=== PATIENT | female | born 1955 | race African-American/Black ===

== ENCOUNTER 2018-01-04 17:04 | Inpatient (IN) | payer MEDICARE ==
[~2018-01-04] VITALS: Ht 167.6 cm; Wt 101.6 kg
[2018-01-04] MEDS ORDERED: SODIUM CHLORIDE FLUSH 10ML SYR IVF ONE (17:30)
[2018-01-04] MEDS ORDERED: PLEASE ENTER HEIGHT AND WEIGHT MC SCH (18:00)
[2018-01-04 18:43] LABS: BASOPHILS # (AUTO) 0.03 x10^3/uL (0-0.1); BASOPHILS % (AUTO) 0 % (0-1); EOSINOPHILS # (AUTO) 0.09 x10^3/uL (0-0.4); EOSINOPHILS % (AUTO) 1 % (1-7); LYMPHOCYTES # (AUTO) 2.68 x10^3/uL (1-3.4); LYMPHOCYTES % (AUTO) 20 % (22-44); MD NO; MEAN CORPUSCULAR HEMOGLOBIN 28.5 pg (27.0-34.8); MEAN CORPUSCULAR HGB CONC 32.6 g/dL (32.4-35.8); MEAN CORPUSCULAR VOLUME 87.5 fL (80-100); MEAN PLATELET VOLUME 9.8 fL (7.4-10.4); MONOCYTES # (AUTO) 0.81 x10^3/uL (0.2-0.8); MONOCYTES % (AUTO) 6 % (2-9); NEUTROPHILS # (AUTO) 9.51 x10^3/uL (1.8-6.8); NEUTROPHILS % (AUTO) 73 % (42-75); PLATELET COUNT 270 x10^3/uL (130-400); RED BLOOD COUNT 4.82 x10^6/uL (3.82-5.3); RED CELL DISTRIBUTION WIDTH 13.2 % (9.6-15.2)
[2018-01-04 18:53] LABS: ALBUMIN 3.4 g/dL (3.4-5.0); ANION GAP 8 mmol/L (5-15); CALCIUM 9.1 mg/dL (8.5-10.1); CHLORIDE 110 mmol/L (98-107)
[2018-01-04 19:00] LABS: ALANINE AMINOTRANSFERASE 30 U/L (12-78); ALKALINE PHOSPHATASE 80 U/L (45-117); BILIRUBIN,TOTAL 0.8 mg/dL (0.2-1.0); CREATININE 0.87 mg/dL (0.55-1.02); TOTAL PROTEIN 7.3 g/dL (6.4-8.2); TROPONIN I < 0.015 ng/mL (0.000-0.045)
[2018-01-04] MEDS ORDERED: OMNIPAQUE 350 MG/ML, 100ML BOTTLE ONE (19:48)
[2018-01-04] MEDS ORDERED: SULFAMETH./TRIMETHOPRIM DS 800MG/160MG TABLET PO ONE (20:30)
[2018-01-04] MEDS ORDERED: CEPHALEXIN 500 MG CAPSULE PO ONE (20:30)
[2018-01-04] MEDS ORDERED: LABETALOL 5MG/ML, 20ML IVPush ONE (20:30)
[2018-01-04] MEDS ORDERED: MORPHINE SULFATE 4 MG/ML, 1ML ONE (20:43)
[2018-01-04] MEDS ORDERED: CEPHALEXIN 500 MG CAPSULE ONE (20:57)
[2018-01-04] MEDS ORDERED: SULFAMETH./TRIMETHOPRIM DS 800MG/160MG TABLET ONE (20:57)
[2018-01-04] MEDS ORDERED: LABETALOL 5MG/ML, 20ML ONE (20:57)
[2018-01-04] MEDS ORDERED: PROMETHAZINE 25 MG/ML, 1ML IM PRN ×2 (21:00)
[2018-01-04] MEDS ORDERED: morphine SULFATE 10 MG/ML, 1ML IVPush PRN (21:00)
[2018-01-04] MEDS ORDERED: MORPHINE SULFATE 4 MG/ML, 1ML IVPush PRN (21:00)
[2018-01-04] MEDS ORDERED: hydrALAzine 20 MG/ML, 1ML IVPush PRN (21:00)
[2018-01-04] MEDS ORDERED: ONDANSETRON ODT 4 MG PO PRN (21:00)
[2018-01-04] MEDS ORDERED: DOCUSATE 100 MG CAPSULE PO PRN (21:00)
[2018-01-04] MEDS ORDERED: BISACODYL 10 MG SUPP PR PRN (21:00)
[2018-01-04] MEDS ORDERED: ACETAMINOPHEN 325 MG TABLET PO PRN (21:00)
[2018-01-04] MEDS ORDERED: POLYETHYLENE GLYCOL 17 GM PACKET PO PRN (21:00)
[2018-01-04] MEDS ORDERED: ONDANSETRON 2MG/ML, 2ML IVPush PRN (21:00)
[2018-01-04] MEDS ORDERED: ENALAPRILAT 1.25 MG/ML, 2ML IVPush PRN (21:00)
[2018-01-04] MEDS ORDERED: OXYcodone IR 5MG TABLET PO PRN (21:00)
[2018-01-04] MEDS ORDERED: METF500T4 PO (21:24)
[2018-01-04] MEDS ORDERED: GLIP5TAB10 PO (21:26)
[2018-01-04] MEDS: INSULIN LISPRO 100 UNITS/ML, PEN SQ-INSULIN SCH (22:00)
[2018-01-04] MEDS ORDERED: POTASSIUM CHLORIDE 20 MEQ TAB.ER.PRT PO ONE (22:00)
[2018-01-04] MEDS: CEPHALEXIN 500 MG CAPSULE PO SCH (22:00)
[2018-01-04 22:14] LABS: HEMOGLOBIN A1C 7.1 % (4.2-6.3)
[2018-01-04 22:15] LABS: FREE T4 (FREE THYROXINE) 1.19 ng/dL (0.76-1.46); THYROID STIMULATING HORMONE 0.563 mIU/L (0.358-3.740)
[2018-01-04 22:17] VITALS: BP 184/103
[2018-01-04] MEDS: SIMVASTATIN 20 MG TABLET PO SCH (22:58)
[2018-01-04] MEDS: LISINOPRIL 20 MG TABLET PO SCH (22:59)
[2018-01-04] MEDS: METOPROLOL TARTRATE 25 MG TABLET PO SCH (22:59)
[2018-01-04] MEDS: NICOTINE 14MG/24 HR PATCH.TD24 TD SCH (22:59)
[2018-01-04] MEDS: HEPARIN 5,000 UNITS/ML, 1ML SQ SCH (23:00)
[2018-01-05 00:01] LABS: TROPONIN I 0.023 ng/mL (0.000-0.045)
[2018-01-05] MEDS ORDERED: PNEUMOCOCCAL 23 VACCINE IM-VACC ONE (00:30)
[2018-01-05 00:47] LABS: MICROSCOPIC NOT IND
[2018-01-05 01:05] LABS: CULTURE INDICATED? NO
[2018-01-05 02:00] VITALS: BP 159/96
[2018-01-05] MEDS: CEPHALEXIN 500 MG CAPSULE PO SCH ×3 (03:31→18:26)
[2018-01-05] MEDS ORDERED: ASPIRIN 325 MG TABLET EC PO SCH (06:00)
[2018-01-05] MEDS: HEPARIN 5,000 UNITS/ML, 1ML SQ SCH ×3 (06:00→23:25)
[2018-01-05] MEDS: METOPROLOL TARTRATE 25 MG TABLET PO SCH ×2 (06:01→18:27)
[2018-01-05 06:17] LABS: BASOPHILS # (AUTO) 0.12 x10^3/uL (0-0.1); BASOPHILS % (AUTO) 1 % (0-1); EOSINOPHILS # (AUTO) 0.15 x10^3/uL (0-0.4); EOSINOPHILS % (AUTO) 1 % (1-7); LYMPHOCYTES # (AUTO) 3.98 x10^3/uL (1-3.4); LYMPHOCYTES % (AUTO) 33 % (22-44); MD NO; MEAN CORPUSCULAR HEMOGLOBIN 28.4 pg (27.0-34.8); MEAN CORPUSCULAR HGB CONC 32.8 g/dL (32.4-35.8); MEAN CORPUSCULAR VOLUME 86.7 fL (80-100); MEAN PLATELET VOLUME 9.6 fL (7.4-10.4); MONOCYTES # (AUTO) 1.05 x10^3/uL (0.2-0.8); MONOCYTES % (AUTO) 9 % (2-9); NEUTROPHILS # (AUTO) 6.89 x10^3/uL (1.8-6.8); NEUTROPHILS % (AUTO) 57 % (42-75); PLATELET COUNT 230 x10^3/uL (130-400); RED BLOOD COUNT 4.35 x10^6/uL (3.82-5.3); RED CELL DISTRIBUTION WIDTH 12.9 % (9.6-15.2)
[2018-01-05 06:28] LABS: ALBUMIN 2.9 g/dL (3.4-5.0); ANION GAP 9 mmol/L (5-15); CALCIUM 8.7 mg/dL (8.5-10.1); CHLORIDE 111 mmol/L (98-107)
[2018-01-05 06:32] LABS: ALANINE AMINOTRANSFERASE 24 U/L (12-78); ALKALINE PHOSPHATASE 67 U/L (45-117); BILIRUBIN,TOTAL 0.8 mg/dL (0.2-1.0); CHOL/HDL RATIO 3.8; CHOLESTEROL, TOTAL 155 mg/dL (140-239); CREATININE 0.81 mg/dL (0.55-1.02); HDL CHOL % 26 % (28-40); HDL CHOLESTEROL (DIRECT) 41 mg/dL (40-60); LDL CHOLESTEROL,CALCULATED 97 mg/dL (54-169); LDL/HDL RATIO 2.4 (0.5-3.0); TOTAL PROTEIN 6.5 g/dL (6.4-8.2); TRIGLYCERIDES 83 mg/dL (50-200); VLDL CHOLESTEROL 17 mg/dL (0-25)
[2018-01-05 06:34] LABS: TROPONIN I 0.019 ng/mL (0.000-0.045)
[2018-01-05] MEDS: INSULIN LISPRO 100 UNITS/ML, PEN SQ-INSULIN SCH ×4 (07:00→21:00)
[2018-01-05 07:37] VITALS: BP 129/77
[2018-01-05] MEDS: LISINOPRIL 20 MG TABLET PO SCH (08:33)
[2018-01-05] MEDS ORDERED: REGADENOSON 0.4 MG/5 ML SYRINGE ONE (12:17)
[2018-01-05 15:00] VITALS: BP 140/87
[2018-01-05] MEDS ORDERED: FUROSEMIDE 40 MG/4 ML IV ONE (18:00)
[2018-01-05] MEDS ORDERED: POTASSIUM CHLORIDE 20 MEQ TAB.ER.PRT PO ONE (18:00)
[2018-01-05 19:59] VITALS: BP 182/94
[2018-01-05] MEDS: SIMVASTATIN 20 MG TABLET PO SCH (20:04)
[2018-01-05] MEDS: NICOTINE 14MG/24 HR PATCH.TD24 TD SCH (20:04)
[2018-01-06] MEDS: CEPHALEXIN 500 MG CAPSULE PO SCH ×3 (00:44→12:37)
[2018-01-06 00:54] VITALS: BP 167/94
[2018-01-06 03:29] VITALS: BP 174/117
[2018-01-06 04:44] LABS: BASOPHILS # (AUTO) 0.13 x10^3/uL (0-0.1); BASOPHILS % (AUTO) 1 % (0-1); EOSINOPHILS # (AUTO) 0.15 x10^3/uL (0-0.4); EOSINOPHILS % (AUTO) 1 % (1-7); LYMPHOCYTES # (AUTO) 2.73 x10^3/uL (1-3.4); LYMPHOCYTES % (AUTO) 24 % (22-44); MD NO; MEAN CORPUSCULAR HEMOGLOBIN 28.7 pg (27.0-34.8); MEAN CORPUSCULAR VOLUME 86.9 fL (80-100); MEAN PLATELET VOLUME 9.5 fL (7.4-10.4); MONOCYTES # (AUTO) 0.94 x10^3/uL (0.2-0.8); MONOCYTES % (AUTO) 8 % (2-9); NEUTROPHILS # (AUTO) 7.41 x10^3/uL (1.8-6.8); NEUTROPHILS % (AUTO) 65 % (42-75); PLATELET COUNT 236 x10^3/uL (130-400); RED BLOOD COUNT 4.55 x10^6/uL (3.82-5.3); RED CELL DISTRIBUTION WIDTH 12.5 % (9.6-15.2)
[2018-01-06 04:55] LABS: ALANINE AMINOTRANSFERASE 22 U/L (12-78); ALBUMIN 2.9 g/dL (3.4-5.0); ANION GAP 6 mmol/L (5-15); CALCIUM 8.5 mg/dL (8.5-10.1); CHLORIDE 112 mmol/L (98-107)
[2018-01-06 04:58] LABS: ALKALINE PHOSPHATASE 70 U/L (45-117); BILIRUBIN,TOTAL 0.8 mg/dL (0.2-1.0); CREATININE 0.77 mg/dL (0.55-1.02); TOTAL PROTEIN 6.8 g/dL (6.4-8.2)
[2018-01-06 05:27] VITALS: BP 176/105
[2018-01-06] MEDS: METOPROLOL TARTRATE 25 MG TABLET PO SCH (05:29)
[2018-01-06] MEDS ORDERED: ASPIRIN 81 MG TABLET EC PO SCH (06:00)
[2018-01-06 06:40] VITALS: BP 174/104
[2018-01-06] MEDS: INSULIN LISPRO 100 UNITS/ML, PEN SQ-INSULIN SCH ×3 (07:00→16:00)
[2018-01-06] MEDS: LISINOPRIL 20 MG TABLET PO SCH (08:39)
[2018-01-06] MEDS: HEPARIN 5,000 UNITS/ML, 1ML SQ SCH ×2 (08:39→14:10)
[2018-01-06] MEDS ORDERED: SPIRONOLACTONE 25 MG TABLET PO SCH (10:00)
[2018-01-06] MEDS ORDERED: POTASSIUM CHLORIDE 20 MEQ TAB.ER.PRT PO ONE (10:00)
[2018-01-06] MEDS ORDERED: FUROSEMIDE 40 MG TABLET PO SCH (10:00)
[2018-01-06 11:07] VITALS: BP 151/90
[2018-01-06] MEDS ORDERED: CEPH-376 PO (14:25)
[2018-01-06] MEDS ORDERED: SPIR25TA PO (14:25)
[2018-01-06] MEDS ORDERED: FURO40TA6 PO (14:25)
[2018-01-06] MEDS ORDERED: ASPI-621 PO (14:25)
[2018-01-06] MEDS ORDERED: CARV12.543 PO (14:25)
[2018-01-06] MEDS ORDERED: LISI-170 PO (14:25)
[2018-01-06] MEDS ORDERED: SIMV20TA3 PO (14:25)
[2018-01-06] MEDS ORDERED: CARVEDILOL 12.5 MG TABLET PO SCH (18:00)
== END 2018-01-06 17:05 | disposition home health service (06) | DRG 871 ==
LOC: ED 20:46 → EDIP 20:50 → 5SO 22:00
PROVIDERS: ADMIT Internal Medicine; ATTEND Internal Medicine
DX: A41.9 Sepsis, unspecified organism (principal); J96.00 Acute respiratory failure, unspecified whether with hypoxia or hypercapnia; I50.33 Acute on chronic diastolic (congestive) heart failure; J98.11 Atelectasis; I16.0 Hypertensive urgency; N61.1 Abscess of the breast and nipple; R59.0 Localized enlarged lymph nodes; E11.65 Type 2 diabetes mellitus with hyperglycemia; N64.4 Mastodynia; F17.200 Nicotine dependence, unspecified, uncomplicated; I11.0 Hypertensive heart disease with heart failure; N61.0 Mastitis without abscess; E78.5 Hyperlipidemia, unspecified; E87.6 Hypokalemia; Z79.84 Long term (current) use of oral hypoglycemic drugs; Z79.899 Other long term (current) drug therapy; Z80.3 Family history of malignant neoplasm of breast; Z82.3 Family history of stroke; Z91.14 Patient's other noncompliance with medication regimen; Z98.51 Tubal ligation status; Z82.49 Family history of ischemic heart disease and other diseases of the circulatory system
CPT/HCPCS: 36415; 71045; 71275; 76642; 78452; 80053; 80061; 81003; 82962; 83036; 83735; 83880; 84100; 84439; 84443; 84484; 85025; 85379; 90732; 93005; 93017; 93306; 96374; 96375; 99285; J1644; J1940; J2785; Q9967; A9502; C9898; J0360; J1815; J2270

== ENCOUNTER → 2018-01-20 | Outpatient (CLI) | payer MEDICARE ==
[~2018-01-20] MED LIST: ACETAMINOPHEN 325 MG TABLET ONE; ASPI-621 PO; CARV12.543 PO; CEPH-376 PO; FURO40TA6 PO; GLIP5TAB10 PO; LISI-170 PO; METF500T4 PO; SIMV20TA3 PO; SPIR25TA PO
== END | disposition home or self-care (01) ==
LOC: CFH 14:10
PROVIDERS: ATTEND Hospitalist
DX: N63.10 Unspecified lump in the right breast, unspecified quadrant (principal); N64.4 Mastodynia; L08.9 Local infection of the skin and subcutaneous tissue, unspecified; Z80.3 Family history of malignant neoplasm of breast
CPT/HCPCS: 77066

== ENCOUNTER 2018-12-18 02:28 | Inpatient (IN) | payer MEDICARE ==
[~2018-12-18] VITALS: Ht 167.6 cm; Wt 104.2 kg
[~2018-12-18 02:28] MED LIST changes: -ACETAMINOPHEN 325 MG TABLET ONE; -ASPI-621 PO; +ASPI81TA45 PO; +METF500T17 PO; -METF500T4 PO
[2018-12-18] MEDS ORDERED: [UNRECOGNIZED DRUG - OTHER] PO (02:44)
[2018-12-18] MEDS ORDERED: AMLO10TA8 PO (02:44)
[2018-12-18] MEDS ORDERED: ONDANSETRON 2MG/ML, 2ML ONE (02:49)
[2018-12-18] MEDS ORDERED: MORPHINE SULFATE 4 MG/ML, 1ML ONE ×2 (02:50→03:53)
[2018-12-18 02:59] LABS: BASOPHILS # (AUTO) 0.06 x10^3/uL (0-0.1); BASOPHILS % (AUTO) 1 % (0-1); EOSINOPHILS # (AUTO) 0.22 x10^3/uL (0-0.4); EOSINOPHILS % (AUTO) 2 % (1-7); LYMPHOCYTES # (AUTO) 2.84 x10^3/uL (1-3.4); LYMPHOCYTES % (AUTO) 27 % (22-44); MD NO; MEAN CORPUSCULAR HEMOGLOBIN 29.6 pg (27.0-34.8); MEAN CORPUSCULAR HGB CONC 33.5 g/dL (32.4-35.8); MEAN CORPUSCULAR VOLUME 88.2 fL (80-100); MEAN PLATELET VOLUME 8.4 fL (7.4-10.4); MONOCYTES # (AUTO) 0.69 x10^3/uL (0.2-0.8); MONOCYTES % (AUTO) 7 % (2-9); NEUTROPHILS # (AUTO) 6.89 x10^3/uL (1.8-6.8); NEUTROPHILS % (AUTO) 64 % (42-75); PLATELET COUNT 317 x10^3/uL (130-400); RED BLOOD COUNT 4.75 x10^6/uL (3.82-5.3); RED CELL DISTRIBUTION WIDTH 12.7 % (9.6-15.2)
[2018-12-18] MEDS ORDERED: SODIUM CHLORIDE FLUSH 10ML SYR IVF ONE (03:00)
[2018-12-18] MEDS ORDERED: ONDANSETRON 2MG/ML, 2ML IVPush ONE (03:00)
--- NOTE | 2018-12-18 03:00 | NUR ---
PT HAVING LOWER ABDOMINAL PAIN TO RIGHT AND LEFT QUADRANTS. DENIES ANY N/V/D. LAST BOWEL MOVEMENT 4 DAYS AGO.
[2018-12-18 03:12] LABS: ALANINE AMINOTRANSFERASE 34 U/L (12-78); ALBUMIN 3.5 g/dL (3.4-5.0); ANION GAP 4 mmol/L (5-15); CALCIUM 9.2 mg/dL (8.5-10.1); CHLORIDE 110 mmol/L (98-107); CREATININE 0.82 mg/dL (0.55-1.02)
[2018-12-18] MEDS: MORPHINE SULFATE 4 MG/ML, 1ML IVPush PRN ×2 (03:15→03:57)
[2018-12-18 03:16] LABS: ALKALINE PHOSPHATASE 104 U/L (45-117); BILIRUBIN,TOTAL 0.6 mg/dL (0.2-1.0); TOTAL PROTEIN 7.6 g/dL (6.4-8.2); TROPONIN I < 0.015 ng/mL (0.000-0.045)
--- NOTE | 2018-12-18 03:17 | NUR ---
PIV STARTED TO RIGHT FOREARM. PT MEDICATED PER EMAR WITH ZOFRAN 4MG AND MORPHINE 4MG IVP.
--- NOTE | 2018-12-18 03:28 | NUR ---
PT TAKEN TO CT.
--- NOTE | 2018-12-18 03:40 | NUR ---
PT BACK FROM CT
[2018-12-18] MEDS ORDERED: OMNIPAQUE 350 MG/ML, 100ML BOTTLE ONE (03:45)
--- NOTE | 2018-12-18 03:50 | NUR ---
URINE SAMPLE COLLECTED AND SENT
--- NOTE | 2018-12-18 03:57 | NUR ---
PT MEDICATED FOR PAIN PER EMAR WITH MORPHINE 4MG IVP.
[2018-12-18 04:09] LABS: MICROSCOPIC NOT IND
[2018-12-18 04:10] LABS: CULTURE INDICATED? NO
--- NOTE | 2018-12-18 04:21 | NUR ---
PHYSICIAN AT BEDSIDE, UPDATED ON POC. VSS.
--- NOTE | 2018-12-18 04:58 | NUR ---
REPORT GIVEN TO KAYLEEN HENDERSON. ALL QUESTIONS ANSWERED.
[2018-12-18 05:30] VITALS: BP 102/63
[2018-12-18] MEDS ORDERED: ONDANSETRON 2MG/ML, 2ML IVPush PRN (05:30)
[2018-12-18] MEDS ORDERED: hydrALAzine 20 MG/ML, 1ML IV PRN (05:30)
[2018-12-18] MEDS: SODIUM CHLORIDE 0.9% 1,000 ML IV SCH ×2 (05:45→14:59)
[2018-12-18 05:57] VITALS: BP 102/63
[2018-12-18] MEDS: INSULIN LISPRO 100 UNITS/ML, PEN SQ-INSULIN SCH ×4 (07:00→21:00)
[2018-12-18 07:32] VITALS: BP 135/79
[2018-12-18] MEDS: PANTOPRAZOLE 40 MG IV IVPush SCH (08:42)
[2018-12-18] MEDS: FUROSEMIDE 20 MG/2 ML IV SCH (08:42)
[2018-12-18 14:00] VITALS: BP 117/74
[2018-12-18 19:13] VITALS: BP 147/86
[2018-12-18] MEDS: morphine SULFATE 10 MG/ML, 1ML IVPush PRN (23:32)
[2018-12-19] MEDS: SODIUM CHLORIDE 0.9% 1,000 ML IV SCH ×2 (01:07→11:19)
[2018-12-19 03:08] VITALS: BP 142/78
[2018-12-19] MEDS: morphine SULFATE 10 MG/ML, 1ML IVPush PRN (03:57)
[2018-12-19 04:50] LABS: BASOPHILS # (AUTO) 0.07 x10^3/uL (0-0.1); BASOPHILS % (AUTO) 1 % (0-1); EOSINOPHILS # (AUTO) 0.24 x10^3/uL (0-0.4); EOSINOPHILS % (AUTO) 3 % (1-7); LYMPHOCYTES # (AUTO) 4.05 x10^3/uL (1-3.4); LYMPHOCYTES % (AUTO) 47 % (22-44); MD NO; MEAN CORPUSCULAR HEMOGLOBIN 29.3 pg (27.0-34.8); MEAN CORPUSCULAR HGB CONC 33.2 g/dL (32.4-35.8); MEAN CORPUSCULAR VOLUME 88.2 fL (80-100); MEAN PLATELET VOLUME 8.6 fL (7.4-10.4); MONOCYTES # (AUTO) 0.57 x10^3/uL (0.2-0.8); MONOCYTES % (AUTO) 7 % (2-9); NEUTROPHILS # (AUTO) 3.61 x10^3/uL (1.8-6.8); NEUTROPHILS % (AUTO) 42 % (42-75); PLATELET COUNT 266 x10^3/uL (130-400); RED BLOOD COUNT 4.36 x10^6/uL (3.82-5.3); RED CELL DISTRIBUTION WIDTH 12.7 % (9.6-15.2)
[2018-12-19 04:58] LABS: ANION GAP 6 mmol/L (5-15); CALCIUM 8.5 mg/dL (8.5-10.1); CHLORIDE 112 mmol/L (98-107); CREATININE 0.69 mg/dL (0.55-1.02)
[2018-12-19] MEDS: INSULIN LISPRO 100 UNITS/ML, PEN SQ-INSULIN SCH ×2 (07:00→11:00)
[2018-12-19 07:30] VITALS: BP 146/78
[2018-12-19] MEDS: FUROSEMIDE 20 MG/2 ML IV SCH (09:27)
[2018-12-19] MEDS: PANTOPRAZOLE 40 MG IV IVPush SCH (09:27)
[2018-12-19] MEDS ORDERED: POLYETHYLENE GLYCOL 17 GM PACKET PO PRN (11:00)
[2018-12-19] MEDS ORDERED: ATOR20TA86 PO (11:27)
[2018-12-19] MEDS ORDERED: GABA300S PO (11:30)
[2018-12-19] MEDS ORDERED: POTASSIUM CHLORIDE 20 MEQ TAB.ER.PRT PO ONE (12:00)
[2018-12-19 14:52] VITALS: BP 145/85
[2018-12-19] MEDS ORDERED: DOCUSATE 100 MG CAPSULE PO SCH (21:00)
== END 2018-12-19 16:09 | disposition home or self-care (01) | DRG 439 ==
LOC: ED 04:31 → EDIP 04:32 → 3NW 05:12 → DCLOUNGE 12-19 16:00
PROVIDERS: ADMIT Internal Medicine; ATTEND Internal Medicine
DX: K85.00 Idiopathic acute pancreatitis without necrosis or infection (principal); I50.32 Chronic diastolic (congestive) heart failure; N28.9 Disorder of kidney and ureter, unspecified; E11.9 Type 2 diabetes mellitus without complications; F17.210 Nicotine dependence, cigarettes, uncomplicated; I11.0 Hypertensive heart disease with heart failure; D72.829 Elevated white blood cell count, unspecified; K57.90 Diverticulosis of intestine, part unspecified, without perforation or abscess without bleeding; Z79.84 Long term (current) use of oral hypoglycemic drugs; Z80.3 Family history of malignant neoplasm of breast
CPT/HCPCS: 36415; 74174; 80048; 80053; 81003; 82150; 82962; 83605; 83690; 84484; 85025; 93005; 96374; 96375; 96376; 99285; G0378; J2405; Q9967; C9113; J1815; J1940; J2270; J7030

== ENCOUNTER → 2018-12-26 | Outpatient (CLI) | payer MEDICARE ==
[~2018-12-26] MED LIST changes: +AMLO10TA8 PO; +ATOR20TA86 PO; +GABA300S PO; +OMNIPAQUE 350 MG/ML, 100ML BOTTLE ONE; +[UNRECOGNIZED DRUG - OTHER] PO
== END | disposition home or self-care (01) ==
LOC: CFH 11:56
PROVIDERS: ATTEND Nurse Practitioner
DX: R10.11 Right upper quadrant pain (principal); R10.84 Generalized abdominal pain; M54.6 Pain in thoracic spine
CPT/HCPCS: 74177; Q9967

== ENCOUNTER → 2019-02-26 | Outpatient (CLI) | payer MEDICARE ==
[~2019-02-26] MED LIST changes: -OMNIPAQUE 350 MG/ML, 100ML BOTTLE ONE
== END | disposition home or self-care (01) ==
LOC: CVU 12:53
PROVIDERS: ATTEND Internal Medicine Cardiovascular Disease
DX: I34.0 Nonrheumatic mitral (valve) insufficiency (principal); I42.9 Cardiomyopathy, unspecified
CPT/HCPCS: 93306

== ENCOUNTER 2019-06-26 18:27 | Emergency (ER) | payer MEDICARE ==
[~2019-06-26] VITALS: Ht 167.6 cm; Wt 108.2 kg
[2019-06-26] MEDS ORDERED: SODIUM CHLORIDE FLUSH 10ML SYR IVF ONE (19:30)
[2019-06-26 19:44] LABS: BASOPHILS # (AUTO) 0.14 x10^3/uL (0-0.1); BASOPHILS % (AUTO) 1 % (0-1); EOSINOPHILS # (AUTO) 0.27 x10^3/uL (0-0.4); EOSINOPHILS % (AUTO) 2 % (1-7); LYMPHOCYTES # (AUTO) 2.73 x10^3/uL (1-3.4); LYMPHOCYTES % (AUTO) 24 % (22-44); MD NO; MEAN CORPUSCULAR HEMOGLOBIN 28.9 pg (27.0-34.8); MEAN CORPUSCULAR HGB CONC 32.1 g/dL (32.4-35.8); MEAN CORPUSCULAR VOLUME 89.9 fL (80-100); MEAN PLATELET VOLUME 8.9 fL (7.4-10.4); MONOCYTES # (AUTO) 0.77 x10^3/uL (0.2-0.8); MONOCYTES % (AUTO) 7 % (2-9); NEUTROPHILS # (AUTO) 7.31 x10^3/uL (1.8-6.8); NEUTROPHILS % (AUTO) 65 % (42-75); PLATELET COUNT 271 x10^3/uL (130-400); RED CELL DISTRIBUTION WIDTH 13.4 % (9.6-15.2)
[2019-06-26 19:49] LABS: ALANINE AMINOTRANSFERASE 21 U/L (12-78); ALBUMIN 3.3 g/dL (3.4-5.0); ANION GAP 3 mmol/L (5-15); CHLORIDE 106 mmol/L (98-107); CREATININE 1.08 mg/dL (0.55-1.02)
[2019-06-26 19:51] LABS: ALKALINE PHOSPHATASE 104 U/L (45-117); BILIRUBIN,TOTAL 0.4 mg/dL (0.2-1.0); TOTAL PROTEIN 7.6 g/dL (6.4-8.2)
[2019-06-26] MEDS: AMPICILLIN/SULBACTAM 3 GM in SODIUM CHLORIDE 0.9% 100 ML IV ONE (19:53)
--- NOTE | 2019-06-26 19:58 | NUR ---
PT TO ROOM FROM [facility] MONTEMAYOR AT BED SIDE THIS RN CHAPERONED LEFT BREAST EXAM, PIV STARTED TO LEFT HAND 22 G, IV ABX STARTED MD ORDERED
[2019-06-26 21:36] VITALS: BP 124/69
== END 2019-06-26 23:07 | disposition home or self-care (01) ==
LOC: ED 23:00
DX: N61.0 Mastitis without abscess (principal); I10 Essential (primary) hypertension; E11.9 Type 2 diabetes mellitus without complications; E87.6 Hypokalemia; E11.65 Type 2 diabetes mellitus with hyperglycemia
CPT/HCPCS: 36415; 76642; 80053; 85025; 96365; 99284; J0295

== ENCOUNTER → 2019-08-30 | Outpatient (CLI) | payer MEDICARE | END | disposition home or self-care (01) | LOC: CFH 12:09 | PROVIDERS: ATTEND Nurse Practitioner | DX: Z12.31 Encounter for screening mammogram for malignant neoplasm of breast (principal) | CPT/HCPCS: 77067 ==

== ENCOUNTER 2020-01-21 17:15 | Emergency (ER) | payer MEDICARE ==
[~2020-01-21] VITALS: Ht 167.6 cm; Wt 112.3 kg
[~2020-01-21 17:15] MED LIST changes: +SIMV20TA19 PO; -SIMV20TA3 PO
[2020-01-21 17:21] VITALS: BP 152/88
[2020-01-21] MEDS ORDERED: HYDROcodone/APAP 5/325 TABLET ONE (18:09)
[2020-01-21] MEDS ORDERED: HYDROcodone/APAP 5/325 TABLET PO ONE (18:30)
== END 2020-01-21 19:48 | disposition home or self-care (01) ==
LOC: ED 19:17
DX: S16.1XXA Strain of muscle, fascia and tendon at neck level, initial encounter (principal); S20.219A Contusion of unspecified front wall of thorax, initial encounter; S09.90XA Unspecified injury of head, initial encounter; M54.2 Cervicalgia; R07.9 Chest pain, unspecified; R94.31 Abnormal electrocardiogram [ECG] [EKG]; F17.200 Nicotine dependence, unspecified, uncomplicated; I10 Essential (primary) hypertension; E11.9 Type 2 diabetes mellitus without complications; E78.00 Pure hypercholesterolemia, unspecified; V49.49XA Driver injured in collision with other motor vehicles in traffic accident, initial encounter; Y93.89 Activity, other specified; Y92.410 Unspecified street and highway as the place of occurrence of the external cause; Y99.8 Other external cause status
CPT/HCPCS: 70450; 71046; 72125; 93005; 99285